=== PATIENT | female | born 1995 | race Caucasian/White ===

== ENCOUNTER 2017-01-01 16:14 | Emergency (ER) | payer MEDICAID, OTHER ==
[2017-01-01 18:21] LABS: BASO % 0.2 % (0.0-2.0); EOS # 0.1 K/uL (0.0-0.7); EOS % 0.7 % (0.0-4.0); LYMPH # 2.2 K/uL (1.0-4.3); LYMPH % 23.1 % (20.0-40.0); MEAN CELL VOLUME 88.6 fL (81.0-99.0); MEAN CORPUSCULAR HEMOGLOBIN 29.9 pg (27.0-31.0); MEAN CORPUSCULAR HGB CONC 33.8 g/dL (33.0-37.0); MEAN PLATELET VOLUME 9.3 fL (7.2-11.7); MONO # 0.7 K/uL (0.0-0.8); MONO % 7.2 % (0.0-10.0); NRBC % 0.1 % (0.0-2.0); RED CELL DISTRIBUTION WIDTH 13.2 % (11.5-14.5); WHITE BLOOD COUNT 9.6 K/uL (4.8-10.8)
[2017-01-01 18:25] LABS: CHLORIDE 97 mmol/L (98-107); SODIUM 139 mmol/L (132-148)
[2017-01-01 18:26] LABS: POTASSIUM 3.7 mmol/L (3.6-5.2)
[2017-01-01 18:28] LABS: ALB/GLOB RATIO 1.4 (1.0-2.1); ALKALINE PHOSPHATASE 59 U/L (38-126); AST/SGOT 24 U/L (14-36); BILIRUBIN,TOTAL 0.9 mg/dL (0.2-1.3); BLOOD UREA NITROGEN 7 mg/dL (7-17); CARBON DIOXIDE 26 mmol/L (22-30); GFR AFRICAN-AMERICAN > 60; TOTAL PROTEIN 7.8 g/dL (6.3-8.3)
[2017-01-01 18:29] LABS: ALT/SGPT 19 U/L (9-52); CALCIUM 9.5 mg/dl (8.6-10.4); GLUCOSE,RANDOM 79 mg/dL (65-105)
[2017-01-01 18:31] LABS: INR 1.1; PARTIAL THROMBOPLASTIN TIME 29 SECONDS (21-34)
--- NOTE | 2017-01-01 19:47 | C.PDOC ---
Time Seen by Provider: 01/01/17 17:51 Chief Complaint (Nursing): Chest Pain History Per: Patient Onset/Duration Of Symptoms: Days (few) Current Symptoms Are (Timing): Still Present Severity: Moderate Quality: "Pain" Associated Symptoms: denies: Nausea, Dyspnea, Diaphoresis, Syncope Modifying Factors: Other Indicated Below Exacerbating Factors: Turning, Movement Additional History Per: Prior Records Past Medical History Reviewed: Historical Data, Nursing Documentation, Vital Signs Vital Signs: Last Vital Signs Temp 98 F 01/01/17 16:24 Pulse 104 H 01/01/17 16:53 Resp 19 01/01/17 16:24 BP 127/73 01/01/17 16:24 Pulse Ox 100 01/01/17 16:24 - Medical History PMH: No Chronic Diseases Surgical History: No Surg Hx - [facility] Procedures INJECT/INFUSE NEC (08/11/14) Family History: States: Unknown Family Hx - Social History Hx Tobacco Use: Yes Hx Alcohol Use: No Hx Substance Use: No - Immunization History Hx Tetanus Toxoid Vaccination: Yes Hx Influenza Vaccination: No Hx Pneumococcal Vaccination: No Review Of Systems Except As Marked, All Systems Reviewed And Found Negative. Constitutional: Negative for: Fever, Weakness Cardiovascular: Positive for: Chest Pain Respiratory: Negative for: Shortness of Breath, Hemoptysis Gastrointestinal: Negative for: Vomiting, Abdominal Pain Musculoskeletal: Negative for: Neck Pain, Leg Pain Skin: Negative for: Rash Neurological: Negative for: Weakness, Numbness, Seizures, Altered Mental Status Physical Exam - Physical Exam Appears: Non-toxic, No Acute Distress Skin: Normal Color, Warm, Dry, No Rash Head: Atraumatic, Normacephalic Eye(s): bilateral: PERRL, EOMI Neck: Normal ROM, Supple Chest: Symmetrical, No Deformity, Tenderness (anterior chest wall), No Ecchymosis, No Subcutaneous Emphysema Cardiovascular: Rhythm Regular Respiratory: Normal Breath Sounds, No Accessory Muscle Use Gastrointestinal/Abdominal: Soft, No Tenderness Back: No CVA Tenderness Extremity: Normal ROM, No Pedal Edema, No Calf Tenderness Neurological/Psych: Oriented x3, Normal Motor, Normal Sensation ED Course And Treatment - Laboratory Results Result Diagrams: 01/01/17 18:15 01/01/17 18:15 Lab Interpretation: No Acute Changes Urine POC: Negative ECG: Interpreted By Me, Viewed By Me ECG Rhythm: Sinus Tachycardia, Nonspecific Changes Rate From EC O2 Sat by Pulse Oximetry: 100 Pulse Ox Interpretation: Normal - Radiology CXR: Interpreted by Me, Viewed By Me CXR Interpretation: Yes: No Acute Disease, Heart Size (WNL) Progress - Interventions Interventions:: Observation - Medications Administered Oral: Acetaminophen Intravenous: NSAID - Data Reviewed Data Reviewed: Lab, Diagnostic imaging, EKG, Old records - Patient Status Patient status: Mostly improved - Continuity of Care Discussed patient case with:: Patient, ED Nurse - Patient Plan Patient Plan: Discharge, F/U with PCP Disposition Counseled Patient/Family Regarding: Studies Performed, Diagnosis, Need For Followup, Rx Given, Smoking Cessation - Disposition Referrals: Krystle Garcia [Staff Provider] - Disposition: HOME/ ROUTINE Disposition Time: 19:48 Condition: IMPROVED Additional Instructions: Follow up with your doctor this week for further evaluation and treatment. Return to the ER if you develop shortness of breath, worsening of symptoms or if you have any other concerns. Prescriptions: Ibuprofen [Motrin Tab] 400 mg PO TID PRN #15 tab PRN Reason: Pain, Moderate (4-7) Instructions: Chest Wall Pain (ED) - Clinical Impression Clinical Impression: Musculoskeletal chest pain
[2017-01-01 20:04] VITALS: BP 112/73; PULSE 85; RESP 20; TEMP 98.1; O2SAT 99
--- NOTE | 2017-01-02 09:23 | RAD ---
PROCEDURE: CHEST RADIOGRAPH, 1 VIEW HISTORY: chest pain COMPARISON: None available. FINDINGS: LUNGS: Clear. PLEURA: No pneumothorax or pleural fluid seen. CARDIOVASCULAR: Normal. OSSEOUS STRUCTURES: No significant abnormalities. VISUALIZED UPPER ABDOMEN: Normal. OTHER FINDINGS: None. IMPRESSION: No active disease.
--- NOTE | 2017-01-15 12:30 | CARD ---
APPROVED REPORT EKG Measurement Heart [id number] <Conclusion> Sinus tachycardia Possible Left atrial enlargement Nonspecific T wave abnormality Abnormal ECG
== END 2017-01-01 20:05 | disposition home or self-care (01) ==
LOC: C.ER 16:14
DX: R07.89 Other chest pain (principal)
CPT/HCPCS: 71010; 80053; 84484; 84703; 85025; 85378; 85610; 85730; 96374; 99284; J1885

== ENCOUNTER 2017-02-12 08:21 | Emergency (ER) | payer MEDICAID ==
[2017-02-12] MEDS ORDERED: Sodium Chloride 0.9% 1,000 ML IV ONE (09:21)
--- NOTE | 2017-02-12 09:39 | C.PDOC ---
History Of Present Illness 21 y/o female presents to the ED with complains of subjective fever x4 days with multiple episodes of vomiting and diarrhea. Pt also reports itching with urination and pain to upper back and lower legs. Pt denies recent travel or sick contacts. Denies abdominal pain or any other complaints. Time Seen by Provider: 02/12/17 09:17 Chief Complaint (Nursing): GI Problem History Per: Patient History/Exam Limitations: no limitations Onset/Duration Of Symptoms: Days Current Symptoms Are (Timing): Still Present Severity: Moderate Recent travel outside of the [place]: No Past Medical History Reviewed: Historical Data, Nursing Documentation, Vital Signs Vital Signs: Last Vital Signs Temp 99.1 F 02/12/17 13:31 Pulse 103 H 02/12/17 13:31 Resp 16 02/12/17 13:31 BP 108/70 02/12/17 13:31 Pulse Ox 99 02/12/17 13:31 - [email or web address] [facility] Procedures INJECT/INFUSE NEC (08/11/14) Family History: States: Unknown Family Hx - Social History Hx Tobacco Use: Yes Hx Alcohol Use: No Hx Substance Use: No - Immunization History Hx Tetanus Toxoid Vaccination: Yes Hx Influenza Vaccination: No Hx Pneumococcal Vaccination: No Review Of Systems Except As Marked, All Systems Reviewed And Found Negative. Constitutional: Positive for: Fever Cardiovascular: Negative for: Chest Pain Respiratory: Negative for: Shortness of Breath Gastrointestinal: Positive for: Vomiting, Diarrhea. Negative for: Abdominal Pain Physical Exam - Physical Exam Appears: Non-toxic, No Acute Distress Skin: Warm, Dry, No Rash Head: Atraumatic, Normacephalic Ear(s): Bilateral: Normal Nose: Normal Oral Mucosa: Dry (mild) Throat: Normal, No Erythema Neck: Normal, Normal ROM, Supple Chest: Symmetrical Cardiovascular: Rhythm Regular (tachycardic), No Murmur Respiratory: Normal Breath Sounds, No Rales, No Rhonchi, No Wheezing Gastrointestinal/Abdominal: Bowel Sounds (good), Soft, No Tenderness, No Distention Back: Normal Inspection, No Vertebral Tenderness, No Paraspinal Tenderness Extremity: Normal ROM Extremity: Bilateral: Atraumatic Neurological/Psych: Oriented x3 ED Course And Treatment - Laboratory Results Result Diagrams: 02/12/17 10:03 02/12/17 10:03 O2 Sat by Pulse Oximetry: 98 (room air) Pulse Ox Interpretation: Normal - Other Rad CXR X-Ray: Viewed By Me, Read By Radiologist Interpretation: Accession No. : [id number]. Patient Name / ID : NITHYA CRUZ / [id number]. Exam Date : 02/12/2017 11:53:36 ( Approved ). Study Comment : Sex / Age : F / 21Y. Creator : JACY LESLIE. Dictator : Ana Gottlieb MD. Certified Nurse Practitioner : [employer] Caretaker : Ana Gottlieb MD. Approver2 : Report Date : 02/12/2017 12:12:43. My Comment : . HISTORY: cough fever. COMPARISON: Chest x-ray performed 01/01/17. TECHNIQUE: Chest PA and lateral. FINDINGS: LUNGS: Subtle infiltrate adjacent the left heart border. Please note that chest x-ray has limited sensitivity for the detection of pulmonary masses. PLEURA: No significant pleural effusion identified. No definite pneumothorax . CARDIOVASCULAR: The cardiomediastinal silhouette appears within normal limits of size. OSSEOUS STRUCTURES: No acute osseous abnormality identified. VISUALIZED UPPER ABDOMEN: Unremarkable. OTHER FINDINGS: None. IMPRESSION: Subtle infiltrate adjacent the left heart border. Medical Decision Making Medical Decision Making: Plan: prespsis workup- labs, UA, IV fluids, tylenol, zofran 158 pmpt feeling much better; no llonger nauseous, having some soup. pain decreased. subtle infiltrate found on cxr, wll treat for pna. Disposition Counseled Patient/Family Regarding: Studies Performed, Diagnosis, Need For Followup, Rx Given - Disposition Referrals: Krystle Garcia [Staff Provider] - Disposition: HOME/ ROUTINE Disposition Time: 13:59 Condition: IMPROVED Additional Instructions: Increase bed rest. Tylenol or Motrin every 4-6 hours for pain. Drink increased fluids. Take antibiotic as prescribed. FOllow up with Dr Garcia in 1-2 days. Return to ER for any worse symptoms. Prescriptions: Azithromycin [Zithromax] 250 mg PO DAILY #4 tab Instructions: Viral Pneumonia (ED), Bacterial Pneumonia (ED), Gastroenteritis ( ED) Forms: Gen Discharge Inst Irish, Work/School/Gym Excuse - Clinical Impression Clinical Impression: Gastroenteritis, Pneumonia - PA / DISPATCHER [employer] / Resident Statement MD/DO has reviewed & agrees with the documentation as recorded. - Scribe Statement The provider has reviewed the documentation as recorded by the Scribleona Mes[place] All medical record entries made by the Michele were at my direction and personally dictated by me. I have reviewed the chart and agree that the record accurately reflects my personal performance of the history, physical exam, medical decision making, and the department course for this patient. I have also personally directed, reviewed, and agree with the discharge instructions and disposition.
[2017-02-12] MEDS ORDERED: Sodium Chloride 0.9% 1,000 ML ONE (09:46)
[2017-02-12 10:01] LABS: VENOUS BLOOD GAS BASE EXCESS 0.1 mmol/L (0.0-2.0); VENOUS BLOOD GAS PCO2 34 mmHg (40-60); VENOUS BLOOD PH 7.45 (7.32-7.43)
[2017-02-12 10:07] LABS: BASO % 0.1 % (0.0-2.0); EOS % 0.2 % (0.0-4.0); HEMATOCRIT 42.7 % (34.0-47.0); LYMPH # 0.6 K/uL (1.0-4.3); LYMPH % 6.8 % (20.0-40.0); MEAN CELL VOLUME 88.3 fL (81.0-99.0); MEAN CORPUSCULAR HEMOGLOBIN 29.4 pg (27.0-31.0); MEAN CORPUSCULAR HGB CONC 33.3 g/dL (33.0-37.0); MEAN PLATELET VOLUME 8.6 fL (7.2-11.7); MONO # 0.6 K/uL (0.0-0.8); MONO % 6.7 % (0.0-10.0); PLATELET COUNT 177 K/uL (130-400); RED CELL DISTRIBUTION WIDTH 12.4 % (11.5-14.5)
[2017-02-12 10:21] LABS: CHLORIDE 99 mmol/L (98-107)
[2017-02-12 10:22] LABS: POTASSIUM 3.3 mmol/L (3.6-5.2); SODIUM 135 mmol/L (132-148)
[2017-02-12 10:24] LABS: ALB/GLOB RATIO 1.3 (1.0-2.1); AST/SGOT 21 U/L (14-36); CARBON DIOXIDE 24 mmol/L (22-30); GFR AFRICAN-AMERICAN > 60; TOTAL PROTEIN 7.5 g/dL (6.3-8.3)
[2017-02-12 10:25] LABS: ALKALINE PHOSPHATASE 49 U/L (38-126); ALT/SGPT 21 U/L (9-52); BLOOD UREA NITROGEN 13 mg/dL (7-17); CALCIUM 8.9 mg/dl (8.6-10.4); GLUCOSE,RANDOM 93 mg/dL (65-105)
[2017-02-12 10:26] LABS: MAGNESIUM 1.6 mg/dL (1.6-2.3)
[2017-02-12 11:25] LABS: NEUTROPHIL 76 % (50-75); TOTAL CELLS COUNTED 100
[2017-02-12 11:28] LABS: RBC URINE 7 /hpf (0-3); URINE BACTERIA RARE (<OCC); URINE BILIRUBIN NEGATIVE (NEGATIVE); URINE BLOOD 3+ (NEGATIVE); URINE COLOR Yellow (YELLOW); URINE GLUCOSE (UA) NORMAL (Normal); URINE KETONE 1+ mg/dL (NEGATIVE); URINE LEUKOCYTE ESTERASE NEG Leu/uL (Negative); URINE PROTEIN NEGATIVE (NEGATIVE); URINE UROBILINOGEN NORMAL mg/dL (0.2-1.0); WBC URINE 3 /hpf (0-5)
[2017-02-12] MEDS ORDERED: Potassium Chloride 20 mEq/15 ml LIQ UD PO STA (11:42)
--- NOTE | 2017-02-12 12:21 | RAD ---
HISTORY: cough fever COMPARISON: Chest x-ray performed 01/01/17 TECHNIQUE: Chest PA and lateral FINDINGS: LUNGS: Subtle infiltrate adjacent the left heart border. Please note that chest x-ray has limited sensitivity for the detection of pulmonary masses. PLEURA: No significant pleural effusion identified. No definite pneumothorax . CARDIOVASCULAR: The cardiomediastinal silhouette appears within normal limits of size. OSSEOUS STRUCTURES: No acute osseous abnormality identified. VISUALIZED UPPER ABDOMEN: Unremarkable. OTHER FINDINGS: None. IMPRESSION: Subtle infiltrate adjacent the left heart border.
[2017-02-12] MEDS ORDERED: Potassium Chloride 20 mEq/15 ml LIQ UD ONE (12:25)
[2017-02-12] MEDS ORDERED: Dextrose 5%/0.45% NS 1,000 ML IV ONE (12:25)
[2017-02-12] MEDS: Dextrose 5%/0.45% NS 1,000 ML IV SCH ×2 (12:30→13:33)
[2017-02-12 14:49] VITALS: TEMP 98.9
[2017-02-12 15:07] VITALS: BP 101/62; PULSE 91; RESP 16
[2017-02-12 18:47] VITALS: O2SAT 98
== END 2017-02-12 15:08 | disposition home or self-care (01) ==
LOC: C.ER 08:21
DX: K52.9 Noninfective gastroenteritis and colitis, unspecified (principal); J18.9 Pneumonia, unspecified organism
CPT/HCPCS: 71020; 80053; 81001; 82803; 83735; 84100; 84703; 85025; 87040; 87086; 96361; 96374; 96375; 99285; J1885; J2405; J7040; J7042

== ENCOUNTER 2017-10-02 19:43 | Emergency (ER) | payer SELFPAY ==
[2017-10-02 20:17] VITALS: BP 124/87; PULSE 90; RESP 16; TEMP 98.5; O2SAT 98
--- NOTE | 2017-10-02 20:36 | C.PDOC ---
History Of Present Illness 21 year old female presents to the ER after her cat bit her right lower leg [employer]. Patient states the cat appears well but is concerned for rabies since the cat does not have her vaccinations. Denies weakness, numbness, or other complaints. Time Seen by Provider: 10/02/17 20:21 Chief Complaint (Nursing): Bite History Per: Patient History/Exam Limitations: no limitations Onset/Duration Of Symptoms: Hrs Current Symptoms Are (Timing): Still Present Location Of Injury: Right: Leg Quality Of Symptoms: Other (Bite) Recent travel outside of the [place]: No - Animal Bite Description Of The Attack: Unprovoked Attack Description Of The Animal: Family Pet Reports Animal Appears: Well Reports Animal's Immunization Status: Not Recently Immunized Animal Control Notified: No Past Medical History Reviewed: Historical Data, Nursing Documentation, Vital Signs Vital Signs: Last Vital Signs Temp 98.5 F 10/02/17 20:15 Pulse 90 10/02/17 20:15 Resp 16 10/02/17 20:15 BP 124/87 10/02/17 20:15 Pulse Ox 98 10/03/17 00:15 - Medical History PMH: No Chronic Diseases Surgical History: No Surg Hx - [facility] Procedures INJECT/INFUSE NEC (08/11/14) Family History: States: Unknown Family Hx - Social History Hx Tobacco Use: Yes Hx Alcohol Use: Yes Hx Substance Use: No - Immunization History Hx Tetanus Toxoid Vaccination: Yes Hx Influenza Vaccination: No Hx Pneumococcal Vaccination: No Review Of Systems Skin: Positive for: Other (Bite) Neurological: Negative for: Weakness, Numbness Physical Exam - Physical Exam Appears: Non-toxic, No Acute Distress Skin: Warm, Dry Head: Atraumatic, Normacephalic Extremity: No Tenderness, Capillary Refill (<2 seconds), No Swelling, Other ( Superficial bite ferguson in circular pattern to right lower lateral leg. No erythema, warmth, or bleeding.) Pulses: Left Dorsalis Pedis: Normal, Right Dorsalis Pedis: Normal Neurological/Psych: Oriented x3, Normal Speech, Normal Motor, Normal Sensation Gait: Steady ED Course And Treatment O2 Sat by Pulse Oximetry: 98 (Room air) Pulse Ox Interpretation: Normal Progress Note: Patient reassured and explained that rabies series vaccination is not necessary at this time as animal is domesticated and can be observed and pt advised that she can call animal control to take cat into quarantine if concerned or if any abnormal behavior. 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 - Scribe Statement The provider has reviewed the documentation as recorded by the Scribleona Parmar All medical record entries made by the Michealibleona were at my direction and personally dictated by me. I have reviewed the chart and agree that the record accurately reflects my personal performance of the history, physical exam, medical decision making, and the department course for this patient. I have also personally directed, reviewed, and agree with the discharge instructions and disposition.
== END 2017-10-02 21:20 | disposition home or self-care (01) ==
LOC: C.ER 19:43
DX: S81.851A Open bite, right lower leg, initial encounter (principal); W55.01XA Bitten by cat, initial encounter